=== PATIENT | female | born 1990 ===

== ENCOUNTER 2017-02-16 21:13 | Emergency (ER) | payer OTHER ==
[2017-02-16 21:29] VITALS: BP 110/80
[2017-02-16] MEDS ORDERED: predniSONE TAB* 20 MG PO ONE (21:39)
[2017-02-16] MEDS ORDERED: Albuterol HFA INHALER* 8 gm MDI INH ONE (21:39)
[2017-02-16] MEDS ORDERED: Sulfamethox/Trimethoprim DS 800/160* TAB PO ONE (21:39)
--- NOTE | 2017-02-16 21:43 | UC ---
Respiratory Complaint HPI - HPI Summary HPI Summary: C/O cough x 1 week, getting worse with coughing fits. Congestion with some sinus pressure in the frontal sinuses. - History of Current Complaint Chief Complaint: UCGeneralIllness Stated Complaint: COUGH,CHEST CONGESTION Time Seen by Provider: 02/16/17 21:28 Hx Last Menstrual Period: 02/02/17 ?: No Onset/Duration: Sudden Onset, Lasting Weeks - 1, Worse Since - onset Timing: Constant Severity Initially: Mild Severity Currently: Moderate Character: Cough: Nonproductive Aggravating Factors: Deep Breaths, Recumbent Position Alleviating Factors: Nothing Associated Signs And Symptoms: Positive: Dyspnea, Pleuritic Chest Pain, Wheezing , URI, Nasal Congestion, Hoarseness, Sinus Discomfort Related History: Seasonal Allergies - Allergies/Home Medications Allergies/Adverse Reactions: Allergies Allergy/AdvReac Type Severity Reaction Status Date / Time No Known Allergies Allergy Verified 02/16/17 21:24 Home Medications: Home Medications [id number] [Severe Cold & Flu Daytime] 2 cap PO ONCE PRN [History Confirmed 02/16/17] PMH/Surg Hx/FS Hx/Imm Hx Previously Healthy: No - Surgical History Surgical History: Yes Surgery Procedure, Year, and Place: , 2011, [place]; Infection s/p Appendectomy, 1997, [place]; Appendectomy, 1997, [place] - Family History Known Family History: Positive: Cardiac Disease, Hypertension, Diabetes - Social History Occupation: Employed Full-time Lives: With Family Alcohol Use: Occasionally Substance Use Type: None Smoking Status (MU): Light Every Day Tobacco Smoker Type: Cigarettes Amount Used/How Often: 1/4 PPD Length of Time of Smoking/Using Tobacco: 10 Years Have You Smoked in the Last Year: Yes Household Exposure Type: Cigarettes - Immunization History Most Recent Influenza Vaccination: March 2015 Review of Systems Constitutional: Chills ENT: Sinus Congestion, Sinus Pain/Tenderness Respiratory: Cough Cardiovascular: Chest Pain - upper chest pain with coughing. Is Patient Immunocompromised?: No All Other Systems Reviewed And Are Negative: Yes Physical Exam Triage Information Reviewed: Yes Appearance: No Pain Distress, Well-Nourished, Ill-Appearing Vital Signs: Initial Vital Signs Temp 97.2 F 02/16/17 21:15 Pulse 81 02/16/17 21:15 Resp 16 02/16/17 21:15 BP 110/80 02/16/17 21:15 Pulse Ox 98 02/16/17 21:15 Vital Signs Reviewed: Yes Eyes: Positive: Conjunctiva Clear ENT: Positive: Pharynx normal, Nasal congestion, TMs normal Neck exam: Normal Respiratory: Positive: Wheezing - expiratory wheeze with coughing Cardiovascular Exam: Normal Musculoskeletal Exam: Normal Neurological Exam: Normal Psychological Exam: Normal Skin Exam: Normal UC Diagnostic Evaluation - Laboratory O2 Sat by Pulse Oximetry: 98 Respiratory Course/Dx - Differential Dx/Diagnosis Differential Diagnosis/HQI/PQRI: Asthma, Lower Resp Infection, Sinusitis Provider Diagnoses: Acute URI. Acute bronchospasm. Acute sinusitis Discharge - Discharge Plan Condition: Stable Disposition: HOME Prescriptions: Albuterol HFA INHALER* [Ventolin HFA Inhaler*] 2 puff INH Q4H PRN #1 mdi PRN Reason: Wheezing predniSONE TAB* [Deltasone TAB*] 20 mg PO DAILY #18 tab Sulfamethox/Trimethoprim DS* [Bactrim DS 800/160 TAB*] 1 tab PO BID #20 tab Patient Education Materials: Upper Respiratory Infection (ED), Sinusitis (ED), Sulfamethoxazole/Trimethoprim (By mouth), Bronchospasm (ED), Prednisone (By mouth) Referrals: Katie Larsen MD [Primary Care Provider] - Additional Instructions: Smoking Cessation Tricks. 1. Cut down by 1 cigarette per day every 2-3 days. Write the number of smokes for that day on the calendar. 2. Identify triggers to smoking: after meals, on the phone, in the car, with coffee, on breaks at work, etc. 3. Formulate a plan with a behavior to replace the smoking. Fireballs in the car , doodle pad on the phone, flavored creamer for the coffee, go for a walk after a meal or on break at work. 4. For stress smokes do deep breathing relaxation. Breath deep in through the nose hold the breath in for a few seconds then breath out slowly through the mouth.
== END 2017-02-16 22:02 | disposition home or self-care (01) ==
LOC: UCCORT 21:13
DX: J06.9 Acute upper respiratory infection, unspecified (principal); J98.01 Acute bronchospasm; J01.90 Acute sinusitis, unspecified; F17.210 Nicotine dependence, cigarettes, uncomplicated
CPT/HCPCS: 99213; A9270-GY; G0463; J7512